=== PATIENT | male | born 1985 | race Caucasian/White ===

== ENCOUNTER → 2018-04-21 | Outpatient (CLI) | payer OTHER ==
[~2018-04-21] MED LIST: AZAT50 PO; Aspirin EC325 MG PO; CALCA400CH PO; CHOL10002; Cipro500 MG PO; HYDACE10B PO; HYDACE5325 PO; Hair, Skin & N1 EACH PO; MAGIC MOUTHWASH; MYCOPHENOLATE500 MG PO; Milk Thistle150 MG PO; URSODIOL250 MG PO
[2018-04-21 16:28] LABS: BASOPHILS ABSOLUTE AUTO 0.05 K/mm3 (0.00-0.23); BASOPHILS PERCENT AUTO 1 % (0-2); EOSINOPHILS ABSOLUTE AUTO 0.12 K/mm3 (0.00-0.68); EOSINOPHILS PERCENT AUTO 2 % (0-6); Hematocrit 32.1 % (37.0-53.0); Hemoglobin 10.6 g/dL (13.5-17.5); IMMATURE GRAN ABSOLUTE AUTO 0.01 K/mm3 (0.00-0.10); IMMATURE GRAN PERCENT AUTO 0 % (0-1); LYMPHOCYTES ABSOLUTE AUTO 1.18 K/mm3 (0.84-5.20); LYMPHOCYTES PERCENT AUTO 21 % (21-46); MONOCYTES ABSOLUTE AUTO 0.37 K/mm3 (0.16-1.47); MONOCYTES PERCENT AUTO 7 % (4-13); Mean Corpuscular HGB 32.1 pg (26.0-34.0); Mean Corpuscular Volume 97 fL (80-100); Mean Platelet Volume 12.3 fL (9.1-12.4); NEUTROPHILS ABSOLUTE AUTO 3.79 K/mm3 (1.96-9.15); NEUTROPHILS PERCENT AUTO 69 % (41-73); Platelet Count 136 K/mm3 (150-400); RDW Coefficient Variation 16.7 % (11.7-14.2); White Blood Cell Count 5.52 K/mm3 (4.00-11.30)
[2018-04-21 16:51] LABS: Alanine Aminotransfer (ALT/SGP 217 U/L (12-78); Albumin/Globulin Ratio 0.7 (0.8-1.8); Aspartate Aminotrans (AST/SGOT 211 U/L (12-37); Bilirubin, Direct 4.6 mg/dL (0.0-0.3); Bilirubin, Total 5.6 mg/dL (0.1-1.0); Globulin, Blood 4.4 g/dL (2.2-4.0); Total Protein, Blood 7.4 g/dL (6.4-8.2)
[2018-04-21 17:00] LABS: Alk Phos 1146 U/L (50-136)
== END | disposition home or self-care (01) ==
LOC: LAB 16:17 → LAB SHORT 16:17
PROVIDERS: Internal Medicine Gastroenterology
DX: K75.4 Autoimmune hepatitis (principal); R79.89 Other specified abnormal findings of blood chemistry; Z79.899 Other long term (current) drug therapy
CPT/HCPCS: 80076; 85025

== ENCOUNTER 2020-03-07 09:33 | Emergency (ER) | payer OTHER ==
[~2020-03-07] VITALS: Ht 172.7 cm; Wt 72.6 kg
[~2020-03-07 09:33] MED LIST changes: +MYCO250 PO; +URSO300 PO
[2020-03-07 10:20] LABS: Calcium, Ionized (POC) 1.18 mmol/L (1.10-1.46); Chloride (POC) 99 mmol/L (98-108); Creatinine (POC) 0.7 mg/dL (0.8-1.3); Glucose (ISTAT POC) 140 mg/dL (70-99); Hemoglobin (POC) 10.9 g/dL (13.5-17.5); Potassium (POC) 4.2 mmol/L (3.5-5.5); Sodium (POC) 132 mmol/L (135-148); Total CO2 (POC) 22 mmol/L (21-32)
[2020-03-07 10:22] LABS: BASOPHILS ABSOLUTE AUTO 0.07 K/mm3 (0.00-0.23); BASOPHILS PERCENT AUTO 1 % (0-2); EOSINOPHILS ABSOLUTE AUTO 0.09 K/mm3 (0.00-0.68); EOSINOPHILS PERCENT AUTO 1 % (0-6); Hematocrit 32.3 % (37.0-53.0); Hemoglobin 10.4 g/dL (13.5-17.5); IMMATURE GRAN ABSOLUTE AUTO 0.06 K/mm3 (0.00-0.10); IMMATURE GRAN PERCENT AUTO 1 % (0-1); LYMPHOCYTES ABSOLUTE AUTO 0.53 K/mm3 (0.84-5.20); LYMPHOCYTES PERCENT AUTO 5 % (21-46); MONOCYTES ABSOLUTE AUTO 1.04 K/mm3 (0.16-1.47); MONOCYTES PERCENT AUTO 9 % (4-13); Mean Corpuscular HGB 28.6 pg (26.0-34.0); Mean Corpuscular HGB Conc 32.2 g/dL (31.5-36.5); Mean Corpuscular Volume 89 fL (80-100); Mean Platelet Volume 9.4 fL (9.1-12.4); NEUTROPHILS ABSOLUTE AUTO 10.12 K/mm3 (1.96-9.15); NEUTROPHILS PERCENT AUTO 85 % (41-73); Platelet Count 208 K/mm3 (150-400); RDW Coefficient Variation 23.4 % (11.7-14.2); RDW Standard Deviation 75.8 fL (35.1-46.3); Red Blood Cell Count 3.64 M/mm3 (4.30-5.90); White Blood Cell Count 11.91 K/mm3 (4.00-11.30)
[2020-03-07 10:35] LABS: International Normalized Ratio 1.6; Prothrombin Time Results 16.7 Sec (9.7-11.5)
[2020-03-07 10:56] LABS: Alanine Aminotransfer (ALT/SGP 109 U/L (12-78); Albumin, Blood 2.4 g/dL (3.4-5.0); Albumin/Globulin Ratio 0.4 (0.8-1.8); Alk Phos 953 U/L (50-136); Anion Gap 8 mmol/L (6-16); Aspartate Aminotrans (AST/SGOT 170 U/L (12-37); Bilirubin, Total 17.3 mg/dL (0.1-1.0); Blood Urea Nitrogen 14 mg/dL (8-24); Bun/Creatinine Ratio 19.6 (12.0-20.0); CO2, Blood 23 mmol/L (21-32); Calcium, Blood 8.5 mg/dL (8.5-10.1); Chloride, Blood 101 mmol/L (98-108); Creatinine, Blood 0.72 mg/dL (0.60-1.20); Globulin, Blood 5.7 g/dL (2.2-4.0); Glomerular Filtration Rate >60 (60-); Glucose, Blood 131 mg/dL (70-99); Potassium, Blood 4.3 mmol/L (3.5-5.5); Sodium, Blood 132 mmol/L (136-145); Total Protein, Blood 8.1 g/dL (6.4-8.2)
[2020-03-07 13:06] LABS: Body Fluid WBC Count 330 /mm3 (0-999)
[2020-03-07 13:24] LABS: RBC Count, Body Fluid 497 /mm3 (0-0)
[2020-03-07] MEDS ORDERED: Sulfazine500 MG PO (13:28)
[2020-03-07] MEDS ORDERED: CARV6.25 PO (13:29)
[2020-03-07] MEDS ORDERED: Furosemide40 MG PO (13:29)
[2020-03-07] MEDS ORDERED: ALDACTONE100 M1 PO (13:29)
[2020-03-07] MEDS ORDERED: LACT10SY PO (13:30)
[2020-03-07] MEDS ORDERED: CHOLP PO (13:32)
[2020-03-07] MEDS ORDERED: HYDHCL25 PO (13:32)
[2020-03-07] MEDS ORDERED: TRAZ50 PO (13:34)
[2020-03-07] MEDS ORDERED: MULVITA PO (13:34)
[2020-03-07] MEDS ORDERED: C COMPLEX1000 M1 PO (13:36)
[2020-03-07] MEDS ORDERED: METAMUCIL POWD575 GM PO (13:37)
[2020-03-07] MEDS ORDERED: Vitamin D2000 UNIT PO (13:38)
[2020-03-07] MEDS ORDERED: GALZIN50 MG PO ×2 (13:39)
[2020-03-07] MEDS ORDERED: VITAMIN A PO (13:39)
[2020-03-07] MEDS ORDERED: [UNRECOGNIZED DRUG - OTHER] PO (13:40)
[2020-03-07 14:00] LABS: Appearance, Body Fluid Hazy (Clear); Color, Body Fluid Yellow (None-Yellow); Total Cell Count, Body Fluid 100
[2020-03-07] MEDS ORDERED: Oxycodone-Apap1 EA14 PO (14:58)
[2020-03-07] MEDS ORDERED: ONDA4ODT SL (14:58)
[2020-03-07] MEDS ORDERED: Roxicodone5 MG PO (15:44)
== END 2020-03-07 15:15 | disposition home or self-care (01) ==
LOC: ER 09:33
PROVIDERS: Emergency Medicine
DX: R10.30 Lower abdominal pain, unspecified (principal); R11.0 Nausea; Z79.899 Other long term (current) drug therapy
CPT/HCPCS: 36415; 49083; 74177; 80047; 80053; 82140; 82272; 83605; 85014; 85025; 85610; 86850; 86900; 86901; 89051; 96361-59; 96365-59; 96366-59; 96375-59; 99284-25; J2354; J2405; J3010; J7030; J7050; Q9967